=== PATIENT | female | born 1985 | race Caucasian/White ===

== ENCOUNTER → 2019-12-16 | Outpatient (CLI) | payer OTHER ==
[2019-12-16 20:26] LABS: HEMOGLOBIN 13.1 g/dl (12.0-15.5); MEAN CORPUSCULAR HEMOGLOBIN 28.5 pg (27.0-33.0); MEAN CORPUSCULAR HGB CONC 31.2 g/dl (32.0-36.5); MEAN CORPUSCULAR VOLUME 91.5 fl (80.0-96.0); PLATELET COUNT, AUTOMATED 323 10^3/uL (150-450); RED BLOOD COUNT 4.59 10^6/uL (4.00-5.40); WHITE BLOOD COUNT 7.7 10^3/uL (4.0-10.0)
[2019-12-16 20:37] LABS: ALBUMIN 4.4 GM/DL (3.2-5.2); ALT/SGPT 17 U/L (12-78); BILIRUBIN,TOTAL 0.3 MG/DL (0.2-1.0); BLOOD UREA NITROGEN 8 MG/DL (7-18); CALCIUM LEVEL 9.2 MG/DL (8.5-10.1); CARBON DIOXIDE LEVEL 27 MEQ/L (21-32); CHLORIDE LEVEL 105 MEQ/L (98-107); CREATININE FOR GFR 0.81 MG/DL (0.55-1.30); FREE T3 2.6 PG/ML (2.2-4.0); GLOMERULAR FILTRATION RATE > 60.0 (>60); GLUCOSE, FASTING 79 MG/DL (70-100); POTASSIUM SERUM 4.2 MEQ/L (3.5-5.1); SODIUM LEVEL 139 MEQ/L (136-145); TOTAL PROTEIN 7.3 GM/DL (6.4-8.2)
== END ==
LOC: M WUC 16:43
PROVIDERS: ATTEND Student in an Organized Health Care Education/Training Program
DX: E05.00 Thyrotoxicosis with diffuse goiter without thyrotoxic crisis or storm (principal); F41.9 Anxiety disorder, unspecified

== ENCOUNTER → 2020-01-20 | Outpatient (REF) | payer OTHER ==
[2020-01-20 18:13] LABS: APPEARANCE, URINE TURBID (CLEAR); BACTERIA, URINE AUTO NEGATIVE (NEGATIVE); BILIRUBIN, URINE AUTO NEGATIVE (NEGATIVE); BLOOD, URINE BLOOD NEGATIVE (NEGATIVE); COLOR, URINE AMBER (YELLOW); GLUCOSE, URINE (UA) AUTO NEGATIVE (NEGATIVE); KETONE, URINE AUTO TRACE mg/dL (NEGATIVE); LEUKOCYTE ESTERASE, URINE AUTO NEGATIVE (NEGATIVE); NITRITE, URINE AUTO NEGATIVE (NEGATIVE); PROTEIN, URINE AUTO NEGATIVE (NEGATIVE); RBC, URINE AUTO 1 /HPF (0-3); SPECIFIC GRAVITY URINE AUTO 1.018 (1.002-1.035); SQUAMOUS EPITHELIAL CELL UR AU 0 /HPF (0-6); UROBILINOGEN, URINE AUTO 0.2 mg/dL (0.0-2.0); WBC, URINE AUTO 0 /HPF (0-3)
== END ==
LOC: M SFHCPLAZ 17:05
PROVIDERS: ATTEND Obstetrics & Gynecology
DX: R35.0 Frequency of micturition (principal)

== ENCOUNTER 2020-03-20 09:18 | Emergency (ER) | payer OTHER ==
[~2020-03-20] VITALS: Ht 172.7 cm; Wt 69.1 kg
[2020-03-20] MEDS ORDERED: ALPR0.5T3 PO (09:26)
[2020-03-20] MEDS ORDERED: METH25TAB PO (09:26)
[2020-03-20] MEDS ORDERED: QUET1TAB7 PO (09:26)
[2020-03-20] MEDS ORDERED: HYDR50TA70 PO (09:26)
[2020-03-20] MEDS ORDERED: METO50TA7 PO (09:26)
[2020-03-20 10:21] LABS: HEMATOCRIT 45.6 % (36.0-47.0); HEMOGLOBIN 14.5 g/dl (12.0-15.5); MEAN CORPUSCULAR HEMOGLOBIN 28.5 pg (27.0-33.0); MEAN CORPUSCULAR HGB CONC 31.8 g/dl (32.0-36.5); MEAN CORPUSCULAR VOLUME 89.8 fl (80.0-96.0); PLATELET COUNT, AUTOMATED 342 10^3/uL (150-450); RED BLOOD COUNT 5.08 10^6/uL (4.00-5.40); WHITE BLOOD COUNT 11.2 10^3/uL (4.0-10.0)
[2020-03-20 10:46] LABS: HCG, SERUM QUALITATIVE NEGATIVE (NEGATIVE)
[2020-03-20 11:01] LABS: ALBUMIN 4.3 GM/DL (3.2-5.2); ALT/SGPT 17 U/L (12-78); BILIRUBIN,DIRECT 0.2 MG/DL (0.0-0.2); BILIRUBIN,TOTAL 0.9 MG/DL (0.2-1.0); BLOOD UREA NITROGEN 13 MG/DL (7-18); CALCIUM LEVEL 9.3 MG/DL (8.5-10.1); CARBON DIOXIDE LEVEL 27 MEQ/L (21-32); CHLORIDE LEVEL 107 MEQ/L (98-107); CREATININE FOR GFR 0.86 MG/DL (0.55-1.30); GLOMERULAR FILTRATION RATE > 60.0 (>60); GLUCOSE, FASTING 87 MG/DL (70-100); POTASSIUM SERUM 3.8 MEQ/L (3.5-5.1); SALICYLATE LEVEL < 1.7 MG/DL (5.0-30.0); SODIUM LEVEL 140 MEQ/L (136-145); TOTAL PROTEIN 8.1 GM/DL (6.4-8.2)
[2020-03-20 11:02] LABS: ACETAMINOPHEN LEVEL < 2.0 UG/ML (10.0-30.0); AMPHETAMINES LEVEL URINE NEGATIVE (NEGATIVE); BARBITURATES URINE NEGATIVE (NEGATIVE); BENZODIAZEPINES URINE POSITIVE (NEGATIVE); CANNABINOIDS URINE NEGATIVE (NEGATIVE); COCAINE METABOLITE URINE NEGATIVE (NEGATIVE); ETHYL ALCOHOL (ETHANOL) < 0.003 % (0.000-0.010); METHADONE URINE NEGATIVE (NEGATIVE); OPIATES URINE NEGATIVE (NEGATIVE); PHENCYCLIDINE URINE NEGATIVE (NEGATIVE)
[2020-03-20] MEDS ORDERED: ACETAMINOPHEN 325 MG TAB PO ONE (12:00)
[2020-03-20 12:13] VITALS: BP 136/68
== END 2020-03-20 12:20 | disposition home or self-care (01) ==
LOC: M ED 09:18
DX: F33.9 Major depressive disorder, recurrent, unspecified (principal); F41.9 Anxiety disorder, unspecified; F43.10 Post-traumatic stress disorder, unspecified; F42.9 Obsessive-compulsive disorder, unspecified; Z79.899 Other long term (current) drug therapy
CPT/HCPCS: 36415; 80048; 80076; 80307; 84443; 84703; 85027; 99284; G0480

== ENCOUNTER 2020-03-31 18:10 | Inpatient (IN) | payer OTHER ==
[~2020-03-31] VITALS: Ht 172.7 cm; Wt 67.8 kg
[~2020-03-31 18:10] MED LIST: ALPR0.5T3 PO; HYDR50TA70 PO; METH25TAB PO; METO50TA7 PO; QUET1TAB7 PO
[2020-03-31] MEDS ORDERED: ALPR1TAB3 PO (18:31)
[2020-03-31 19:18] LABS: HEMATOCRIT 41.7 % (36.0-47.0); HEMOGLOBIN 13.8 g/dl (12.0-15.5); MEAN CORPUSCULAR HEMOGLOBIN 28.9 pg (27.0-33.0); MEAN CORPUSCULAR HGB CONC 33.1 g/dl (32.0-36.5); MEAN CORPUSCULAR VOLUME 87.2 fl (80.0-96.0); PLATELET COUNT, AUTOMATED 360 10^3/uL (150-450); RED BLOOD COUNT 4.78 10^6/uL (4.00-5.40)
[2020-03-31 19:38] LABS: HCG, SERUM QUALITATIVE NEGATIVE (NEGATIVE)
[2020-03-31 19:56] LABS: ACETAMINOPHEN LEVEL < 2.0 UG/ML (10.0-30.0); ALBUMIN 4.1 GM/DL (3.2-5.2); ALT/SGPT 18 U/L (12-78); BILIRUBIN,DIRECT 0.1 MG/DL (0.0-0.2); BILIRUBIN,TOTAL 0.4 MG/DL (0.2-1.0); BLOOD UREA NITROGEN 13 MG/DL (7-18); CALCIUM LEVEL 8.9 MG/DL (8.5-10.1); CARBON DIOXIDE LEVEL 24 MEQ/L (21-32); CHLORIDE LEVEL 108 MEQ/L (98-107); CREATININE FOR GFR 0.72 MG/DL (0.55-1.30); ETHYL ALCOHOL (ETHANOL) < 0.003 % (0.000-0.010); GLOMERULAR FILTRATION RATE > 60.0 (>60); GLUCOSE, FASTING 83 MG/DL (70-100); POTASSIUM SERUM 3.9 MEQ/L (3.5-5.1); SALICYLATE LEVEL < 1.7 MG/DL (5.0-30.0); SODIUM LEVEL 139 MEQ/L (136-145); TOTAL PROTEIN 7.6 GM/DL (6.4-8.2)
[2020-03-31 19:57] LABS: AMPHETAMINES LEVEL URINE NEGATIVE (NEGATIVE); BARBITURATES URINE NEGATIVE (NEGATIVE); BENZODIAZEPINES URINE POSITIVE (NEGATIVE); CANNABINOIDS URINE NEGATIVE (NEGATIVE); COCAINE METABOLITE URINE NEGATIVE (NEGATIVE); METHADONE URINE NEGATIVE (NEGATIVE); OPIATES URINE NEGATIVE (NEGATIVE); PHENCYCLIDINE URINE NEGATIVE (NEGATIVE)
[2020-03-31] MEDS ORDERED: ALPRAZolam 0.5 MG TAB PO STA (20:01)
[2020-03-31] MEDS ORDERED: MAALOX 30 ML SUSP *UDC PO PRN (21:45)
[2020-03-31] MEDS ORDERED: traZODone 50 MG TAB PO PRN (21:45)
[2020-03-31] MEDS ORDERED: MOM 30ML SUSPENSION UDC PO PRN (21:45)
[2020-03-31] MEDS ORDERED: TOPR50TA PO (22:43)
[2020-03-31] MEDS ORDERED: ACET-683 PO (22:44)
[2020-04-01] MEDS ORDERED: QUEtiapine FUMARATE 50 MG TAB PO SCH (00:15)
[2020-04-01] MEDS: METOPROLOL SUCC (TopROL XL) 50MG **XL** TAB PO SCH ×2 (00:15→20:35)
[2020-04-01] MEDS ORDERED: ALPRAZolam 0.5 MG TAB PO PRN ×2 (00:15→10:45)
[2020-04-01 01:11] VITALS: BP 120/68
[2020-04-01 06:10] VITALS: BP 118/66
--- NOTE | 2020-04-01 07:20 | HPEPDOC ---
[facility] Medical History & Physical Date of Admission March 31, 2020 Date of Service: April 01, 2020 History and Physical CHIEF COMPLAINT: Suicidal Ideation HISTORY OF PRESENT ILLNESS: 34 yo female admitted for suicidal ideation after arguments with significant other and family regarding her medical issues and treatment. PAST MEDICAL HISTORY: 1. Graves disease 2. Anxiety/depression ALLERGIES: Please see below. REVIEW OF SYSTEMS: Negative except as per HPI HOME MEDICATIONS: Please see below. PHYSICAL EXAMINATION: VITAL SIGNS: See below General: NAD, sitting comfortably in chair HEENT: NC/AT, EOMI, PERRL Lungs: CTA B/L Heart: +S1S2, RRR Abd: soft, NT, +BS Ext: no edema LABORATORY DATA: See below. MICROBIOLOGY: Please see below. ASSESSMENT: 34 yo female admitted to [facility] for suicidal ideation, PMHx of Graves disease, anxiety/depression. #SI - as per primary team - psychiatry #Graves disease - thyroid profile noted - patient has been non-compliant with medications - continue methimazole/beta-tara #anxiety/depression - as per primary team Vital Signs Vital Signs Date Time Temp Pulse Resp B/P (MAP) Pulse Ox O2 Delivery O2 Flow Rate FiO2 04/01/20 06:10 97.8 70 12 118/66 (83) Room Air 04/01/20 01:11 96 Laboratory Data Labs 24H Laboratory Tests 2 03/31/20 18:33: Nucleated Red Blood Cells % (auto) 0.0, Anion Gap 7L, Glomerular Filtration Rate > 60.0, Calcium Level 8.9, Total Bilirubin 0.4, Direct Bilirubin 0.1, Aspartate Amino Transf (AST/SGOT) 14, Alanine Aminotransferase (ALT/SGPT) 18, Alkaline Phosphatase 43L, Total Protein 7.6, Albumin 4.1, Albumin/Globulin Ratio 1.2, Thyroid Stimulating Hormone (TSH) 6.480H, Human Chorionic Gonadotropin, Qual NEGATIVE, Salicylates Level < 1.7L, Acetaminophen Level < 2.0L, Ethyl Alcohol Level < 0.003 03/31/20 18:42: Urine Opiates Screen NEGATIVE, Urine Methadone Screen NEGATIVE, Urine Barbiturates Screen NEGATIVE, Urine Phencyclidine Screen NEGATIVE, Urine Amphetamines Screen NEGATIVE, Urine Benzodiazepines Screen POSITIVEH, Urine Cocaine Metabolite Screen NEGATIVE, Urine Cannabinoids Screen NEGATIVE CBC/BMP Laboratory Tests 03/31/20 18:33 Home Medications Scheduled Methimazole (Methimazole) 5 Mg Tablet, 5 MG PO DAILY Metoprolol Succinate (Toprol Xl) 50 Mg Tab.er.24h, 50 MG PO QHS Quetiapine Fumarate (Quetiapine Fumarate) 25 Mg Tablet, 50 MG PO QHS Scheduled PRN Acetaminophen (Acetaminophen) 500 Mg Tablet, 1,000 MG PO Q6H PRN for HEADACHE Alprazolam (Alprazolam) 1 Mg Tablet, 1 MG PO TID PRN for ANXIETY Allergies Coded Allergies: No Known Allergies (Unverified , 03/20/20) A-FIB/CHADSVASC A-FIB History Current/History of A-Fib/PAF?: No YOAV DOUGLAS MD April 01, 2020 07:20
[2020-04-01] MEDS: ACETAMINOPHEN TAB 650MG DOSE (2X325MG) PO PRN ×2 (08:30→17:48)
[2020-04-01] MEDS ORDERED: INFLUENZA QUADRIVALENT PF VACCINE 0.5ML SYRINGE (90686) IM ONE (09:00)
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
[2020-04-01 09:17] LABS: FREE THYROXINE INDEX 2.8 % (1.3-4.8); THYROID STIMULATING HORMONE 3.88 uIU/ML (0.358-3.740); THYROXINE (T4) 8.2 UG/DL (4.5-12.0)
[2020-04-01] MEDS ORDERED: clonazePAM 0.5 MG TAB PO ONE (11:00)
[2020-04-01] MEDS ORDERED: ALPRAZolam 0.5 MG TAB PO SCH (16:00)
[2020-04-01] MEDS: PRAMIPEXOLE (MIRAPEX) 0.125 MG TAB PO SCH (20:35)
[2020-04-01] MEDS: clonazePAM 1 MG TAB PO SCH (20:36)
[2020-04-02] MEDS: ACETAMINOPHEN TAB 650MG DOSE (2X325MG) PO PRN (00:58)
[2020-04-02] MEDS ORDERED: MIRTAZAPINE 15 MG TAB PO ONE (02:45)
[2020-04-02] MEDS ORDERED: IBUPROFEN 600 MG TAB PO ONE (02:45)
[2020-04-02] MEDS ORDERED: LORazepam 1 MG TAB PO ONE (02:45)
[2020-04-02 05:51] VITALS: BP 108/68
[2020-04-02] MEDS ORDERED: hydrOXYzine 50 MG TAB PO PRN (11:15)
[2020-04-02] MEDS: clonazePAM 1 MG TAB PO SCH (20:14)
[2020-04-02] MEDS: PRAMIPEXOLE (MIRAPEX) 0.125 MG TAB PO SCH (20:15)
[2020-04-02 20:17] VITALS: BP 117/74
[2020-04-02] MEDS: METOPROLOL SUCC (TopROL XL) 50MG **XL** TAB PO SCH (20:17)
[2020-04-02] MEDS ORDERED: PILL CUTTER 1 EACH XX PRN (20:30)
[2020-04-02] MEDS ORDERED: traZODone 50 MG TAB PO PRN (20:45)
[2020-04-02] MEDS ORDERED: OLANZapine ORAL DISINTEGRATING TAB 5MG PO ONE (22:30)
[2020-04-03 06:24] VITALS: BP 105/55
--- NOTE | 2020-04-03 09:16 | MHIPNPDOC ---
[facility] Progress Note Progress Note DATE OF SERVICE: 04/03/20 HISTORY: . VITAL SIGNS: See below. NEW TEST RESULTS: . CURRENT MEDICATIONS: See below. MENTAL STATUS EXAMINATION: Patient is a -year old female, who is . Speech: Is . Language skills are . Thought processes including: . Thought content: . Abstract reasoning, and computation: . Description of asso ciations: . Description of abnormal or psychotic thoughts: . Judgment: . Insight: [very limited, good, fair. poor]. Orientation: . Recent and remote memory: . Attention span and concentration: . Language: . Fund of knowledge: . Mood: . Affect: . DIAGNOSES: 1. . 2. . 3. . ASSESSMENT: MANAGEMENT PLAN: . TIME SPENT: minutes. Vital Signs Vital Signs Date Time Temp Pulse Resp B/P (MAP) Pulse Ox O2 Delivery O2 Flow Rate FiO2 04/03/20 06:24 98.8 64 14 105/55 (72) 100 Room Air Current Medications Current Medications Medications (Trade) Dose Ordered Sig/Finesse Route PRN Reason Start Time Stop Time Status Last Admin Dose Admin Acetaminophen (Tylenol Tab) 650 mg Q6HP PRN PO HEADACHE or DISCOMFORT 03/31/20 21:45 04/02/20 00:58 Al Hydrox/Mg Hydrox/Simethicone (Mylanta) 30 ml Q4HP PRN PO HEARTBURN/INDIGESTION 03/31/20 21:45 Alprazolam (Xanax) 1 mg DAILY PRN PO ANXIETY 04/01/20 10:45 04/01/20 10:49 DC Alprazolam (Xanax) 1 mg STAT STAT PO 03/31/20 20:01 03/31/20 20:02 DC 03/31/20 20:10 Alprazolam (Xanax) 1 mg TID PO 04/01/20 16:00 04/01/20 10:49 DC Alprazolam (Xanax) 1 mg TID PRN PO ANXIETY 04/01/20 00:15 04/01/20 10:33 DC 04/01/20 05:42 Clonazepam (KlonoPIN) 2.5 mg QHS PO 04/01/20 21:00 04/02/20 20:14 Home Med (Med Rec Complete!) ASDIRECTED XX 03/31/20 22:45 03/31/20 22:47 DC Hydroxyzine HCl (Atarax) 50 mg QHSP PRN PO sleep 04/02/20 11:15 Magnesium Hydroxide (Milk Of Magnesia) 30 ml DAILYPRN PRN PO CONSTIPATION 03/31/20 21:45 Methimazole (Tapazole) 5 mg DAILY PO 04/01/20 09:00 04/03/20 08:21 Metoprolol Succinate (TopROL XL) 50 mg QHS PO 04/01/20 00:15 04/02/20 20:17 Pramipexole Dihydrochloride (Mirapex) 0.125 mg QHS PO 04/01/20 21:00 04/02/20 20:15 Quetiapine Fumarate (SEROquel) 50 mg QHS PO 04/01/20 00:15 04/01/20 10:49 DC 04/01/20 01:39 Trazodone HCl (Desyrel) 50 mg QHSP PRN PO INSOMNIA 03/31/20 21:45 Cancel Trazodone HCl (Desyrel) 50 mg QHSP PRN PO INSOMNIA 04/02/20 20:45 04/02/20 21:02 Allergies Coded Allergies: No Known Allergies (Unverified , 03/20/20) ISAAC PITTMAN DO April 03, 2020 09:16
--- NOTE | 2020-04-03 09:52 | MHDSPDOC ---
[facility] Discharge Summary Discharge Summary DATE OF ADMISSION: March 31, 2020 at 21:39 DATE OF DISCHARGE: April 03, 2020 at 11:27 DISCHARGE DIAGNOSES: 1. Unspecified depressive disorder. 2., PTSD. REASON FOR ADMISSION:, the patient a 34-year-old woman came in on her own for treatment, she reports that she is been off her medications for some time as she moved in with her boyfriend's family who don't believe in psychiatric medicines. CONSULTANTS INVOLVED: none TREATMENT AND PROGRESS ON THE UNIT :. The patient was admitted to the inpatient mental health unit where she was notably found to have some attention seeking behaviors, she was eventually taken off Xanax as she was on a very high dose and change declines of him is a more appropriate agent for eventual taper. Additionally, she was tried on Mirapex as an off label treatment for depression, she tried a number of other antidepressants. She tolerated the combination well and improved on the unit. She had some attention seeking behavior but no overt aggressive or suicidal behaviors observed on the unit. Her suicidality rapidly resolved when she arrived to the unit. She eventually requested to be discharged before the weekend. DISCHARGE ASSESSMENT: 34-year-old woman with likely PTSD and depression as well as likely cluster B personality traits presents and is appropriately triaged onto longer acting benzodiazepine with hopes for taper, as well as Mirapex for treatment resistant depression. The patient at the time of discharge did not meet criteria for involuntary admission/extension due to having a normal mental status exam, improved insight into the situation, They are engaged in the discharge process, as well as being friendly and amenable in behavioral control and havent been engaging in any observed concerning behavior or ideation recently. They decline voluntary extension/admission at this time and must be discharged in good tong, as Im unable to make a case for holding the patient against their will. They may have historical risk factors of admissions and other interactions with psychiatry however, those are not modifiable from a clinical perspective. The patient will need to be discharged in good tong. MENTAL STATUS EXAMINATION ON DISCHARGE: General: Well dressed with good hygiene Speech: Spontaneous and fluid Thought processes: Linear and logical Thought content: Future orientated Abstract reasoning, and computation: Intact Description of associations: Intact Description of abnormal or psychotic thoughts:Denies any suicidal or homicidal ideation. Denies any auditory or visual hallucinations. Does not appear to be responding to internal stimuli. Does not appear to be endorsing any bizarre or paranoid ideation. Judgment: fair Insight: fair Orientation: Alert and orientated 3 Recent and remote memory: Intact Attention span and concentration: Intact Fund of knowledge: Adequate Mood: "okay" Affect: Euthymic with a full range PLAN/FOLLOWUP ARRANGEMENTS: follow-up appointments made in [place] where she plans to return with her family. The amount of time spent in the coordination of care for this patient was approximately 45 minutes. Vital Signs/I&Os Vital Signs Date Time Temp Pulse Resp B/P (MAP) Pulse Ox O2 Delivery O2 Flow Rate FiO2 04/03/20 06:24 98.8 64 14 105/55 (72) 100 Room Air Medications Scheduled Methimazole (Methimazole) 5 Mg Tablet, 5 MG PO DAILY, (Reported) Metoprolol Succinate (Toprol Xl) 50 Mg Tab.er.24h, 50 MG PO QHS, (Reported) Pramipexole Di-HCl (Mirapex) 0.125 Mg Tablet, 0.125 MG PO QHS for mood for 7 Days, #7 Scheduled PRN Acetaminophen (Acetaminophen) 500 Mg Tablet, 1,000 MG PO Q6H PRN for HEADACHE, (Reported) Clonazepam (Klonopin) 2 Mg Tablet, 1.5 TAB PO QHS PRN for anxiety for 14 Days, #21 Hydroxyzine HCl (Hydroxyzine HCl) 50 Mg Tablet, 50 MG PO QHSP PRN for sleep for 7 Days, #7 Allergies Coded Allergies: No Known Allergies (Unverified , 03/20/20) ISAAC PITTMAN DO April 03, 2020 09:52
[2020-04-03] MEDS ORDERED: MIRA0.12 PO (09:56)
[2020-04-03] MEDS ORDERED: HYDR50TA70 PO (09:56)
[2020-04-03] MEDS ORDERED: KLON2TAB PO (09:56)
--- NOTE | 2020-04-06 08:43 | MHIPNPDOC ---
[facility] Progress Note Progress Note DATE OF SERVICE: 04/06/20 HISTORY: . VITAL SIGNS: See below. NEW TEST RESULTS: . CURRENT MEDICATIONS: See below. MENTAL STATUS EXAMINATION: Patient is a -year old female, who is . Speech: Is . Language skills are . Thought processes including: . Thought content: . Abstract reasoning, and computation: . Description of assoc iations: . Description of abnormal or psychotic thoughts: . Judgment: . Insight: [very limited, good, fair. poor]. Orientation: . Recent and remote memory: . Attention span and concentration: . Language: . Fund of knowledge: . Mood: . Affect: . DIAGNOSES: 1. . 2. . 3. . ASSESSMENT: MANAGEMENT PLAN: . TIME SPENT: minutes. Vital Signs Vital Signs Date Time Temp Pulse Resp B/P (MAP) Pulse Ox O2 Delivery O2 Flow Rate FiO2 04/03/20 06:24 98.8 64 14 105/55 (72) 100 Room Air Current Medications Current Medications Medications (Trade) Dose Ordered Sig/Finesse Route PRN Reason Start Time Stop Time Status Last Admin Dose Admin Acetaminophen (Tylenol Tab) 650 mg Q6HP PRN PO HEADACHE or DISCOMFORT 03/31/20 21:45 04/03/20 11:41 DC 04/02/20 00:58 Al Hydrox/Mg Hydrox/Simethicone (Mylanta) 30 ml Q4HP PRN PO HEARTBURN/INDIGESTION 03/31/20 21:45 04/03/20 11:41 DC Alprazolam (Xanax) 1 mg DAILY PRN PO ANXIETY 04/01/20 10:45 04/01/20 10:49 DC Alprazolam (Xanax) 1 mg STAT STAT PO 03/31/20 20:01 03/31/20 20:02 DC 03/31/20 20:10 Alprazolam (Xanax) 1 mg TID PO 04/01/20 16:00 04/01/20 10:49 DC Alprazolam (Xanax) 1 mg TID PRN PO ANXIETY 04/01/20 00:15 04/01/20 10:33 DC 04/01/20 05:42 Clonazepam (KlonoPIN) 2.5 mg QHS PO 04/01/20 21:00 04/03/20 11:41 DC 04/02/20 20:14 Home Med (Med Rec Complete!) ASDIRECTED XX 03/31/20 22:45 03/31/20 22:47 DC Hydroxyzine HCl (Atarax) 50 mg QHSP PRN PO sleep 04/02/20 11:15 04/03/20 11:41 DC Magnesium Hydroxide (Milk Of Magnesia) 30 ml DAILYPRN PRN PO CONSTIPATION 03/31/20 21:45 04/03/20 11:41 DC Methimazole (Tapazole) 5 mg DAILY PO 04/01/20 09:00 04/03/20 11:41 DC 04/03/20 08:21 Metoprolol Succinate (TopROL XL) 50 mg QHS PO 04/01/20 00:15 04/03/20 11:41 DC 04/02/20 20:17 Pramipexole Dihydrochloride (Mirapex) 0.125 mg QHS PO 04/01/20 21:00 04/03/20 11:41 DC 04/02/20 20:15 Quetiapine Fumarate (SEROquel) 50 mg QHS PO 04/01/20 00:15 04/01/20 10:49 DC 04/01/20 01:39 Trazodone HCl (Desyrel) 50 mg QHSP PRN PO INSOMNIA 03/31/20 21:45 Cancel Trazodone HCl (Desyrel) 50 mg QHSP PRN PO INSOMNIA 04/02/20 20:45 04/03/20 11:41 DC 04/02/20 21:02 Allergies Coded Allergies: No Known Allergies (Unverified , 03/20/20) ISAAC PITTMAN DO Apr 06, 2020 08:43
== END 2020-04-03 11:27 | disposition home or self-care (01) | DRG 754 ==
LOC: M ED 18:10 → M ED INP 21:39 → M PSY 23:00
PROVIDERS: ADMIT Psychiatry & Neurology Addiction Medicine; ATTEND Psychiatry & Neurology Addiction Medicine
DX: F32.9 Major depressive disorder, single episode, unspecified (principal); E05.00 Thyrotoxicosis with diffuse goiter without thyrotoxic crisis or storm; F43.11 Post-traumatic stress disorder, acute; F60.89 Other specific personality disorders; Z79.899 Other long term (current) drug therapy